=== PATIENT | male | born 1955 | race Caucasian/White ===

== ENCOUNTER 2017-06-16 13:04 | Observation (INO) | payer OTHER ==
[2017-06-16] MEDS ORDERED: ONDANSETRON 4 MG/2 ML VIAL IVP PRN (14:10)
[2017-06-16] MEDS ORDERED: ONDANSETRON DISINTEGRATING 4 MG TAB PO PRN (14:10)
[2017-06-16] MEDS ORDERED: ACETAMINOPHEN 325 MG TAB PO PRN (14:10)
[2017-06-16] MEDS ORDERED: DEXAMETHASONE 10 MG/ML VIAL IVP ONE (14:10)
[2017-06-16] MEDS ORDERED: cefTRIAXone 1 GM in D5W 50 ML IV SCH (14:30)
--- NOTE | 2017-06-16 14:41 | PDGENHP ---
History and Physical - Chief Complaint throat pain - History of Present Illness 62 yo male with h/o hypothyroidism presents to hospital for direct admission from the ENT clinic due to concern for bill-tonsillar abscess. He initially felt throat pain on the left side 2 days prior to arrival. He felt a tender, swollen left sided lymph node. This became larger, more tender and more painful , particularly in the back of his throat. He has difficulty swallowing. Denies swelling of tongue or lips. No fevers, but endorses chills. He feels fatigued. Reports poor oral intake. He has not received antibiotics or steroids prior to arrival. History Information - Allergies/Home Medication List Allergies/Adverse Reactions: No Known Allergies Allergy (Unverified 06/16/17 14:10) Home Medications: Ibuprofen [Motrin (*)] 200 mg PO DAILY PRN 06/16/17 [Last Taken Unknown] Levothyroxine [Synthroid 100 mcg (*)] 100 mcg PO DAILY06 06/16/17 [Last Taken ] I have personally reviewed and updated: family history, medical history, social history, surgical history - Past Medical History Additional medical history: hypothyroidism, shoulder arthritis - Surgical History Additional surgical history: shoulder surgeries - Family History Positive for: male first degree with history of premature CAD Additional family history: brother had MT in his early 60's - Social History Smoking Status: Never smoked Alcohol Use: Other (1-2 beers a day) Drug Use: Marijuana Additional social history: Works for [employer], [employer]. Girlfriend is present at bedside. Review of Systems ROS: 10pt was reviewed & negative except for what was stated in HPI & below Physical Exam Temp Pulse Resp BP Pulse Ox 37.2 C 64 16 128/78 H 97 06/16/17 14:06 06/16/17 14:06 06/16/17 14:06 06/16/17 14:06 06/16/17 14:06 Constitutional: no apparent distress Eyes: PERRL, anicteric sclera, EOMI Ears, Nose, Mouth, Throat: moist mucous membranes, other (+left peritonsillar hypertrophy, ?abscess, minimal uvula displacement, no angioedema. Neck supple, +left anterior LAD, +tender) Cardiovascular: regular rate and rhythym, no murmur, rub, or gallop Respiratory: no respiratory distress, clear to auscultation Gastrointestinal: normoactive bowel sounds, soft, non-tender abdomen Skin: warm Musculoskeletal: full muscle strength Neurologic: AAOx3 Psychiatric: interacting appropriately Assessment & Plan Assessment: 62 yo male with h/o hypothyroidism presents for direct admission for tonsillitis and concern for peritonsillar abscess. Tonsillitis - ?peritonsillar abscess. No significant uvula deviation. Rapid strep neg in outpt setting. Case reviewed with ENT and they will consult. -obtain CBC, BMP, CRP, blood cultures -send GAS culture -IV clindamycin and ceftriaxone per ENT recommendations -will likely obtain CT neck, awaiting renal function -speech/swallow eval Hypothyroidism - cont outpt levothyroxine Full code DVT PPLX - relatively low risk, SCD's and ambulation for now, consider Lovenox if he has a prolonged hospitalization or requires surgery Dispo - obs
[2017-06-16 15:16] LABS: % IMMATURE GRANULYOCYTES 0.2 % (0.0-1.1); ABSOLUTE IMMATURE GRANULOCYTES 0.02 10^3/uL (0.00-0.10); ADD DIFF? NO; ADD MORPH? NO; ADD SCAN? NO; ATYPICAL LYMPHOCYTE FLAG 0 (0-99); FRAGMENT RBC FLAG 0 (0-99); HEMATOCRIT 42.7 % (40.0-51.0); HEMOGLOBIN 14.8 g/dL (13.7-17.5); LEFT SHIFT FLG 0 (0-99); LIPEMIA HEMOLYSIS FLAG 90 (0-99); MEAN CELL HEMOGLOBIN 32.2 pg (27.9-34.1); MEAN CELL HEMOGLOBIN CONCENTR. 34.7 g/dL (32.4-36.7); MEAN PLATELET VOLUME 10.5 fL (8.7-11.7); PLATELET CLUMPS FLAG 10 (0-99); PLATELET COUNT 180 10^3/uL (150-400); RED BLOOD CELL COUNT 4.59 10^6/uL (4.40-6.38); RED CELL DISTRIBUTION WIDTH 12.5 % (11.5-15.2)
[2017-06-16] MEDS: HYDROmorphONE/DILAUDID 1 MG/ML SYR IVP PRN ×2 (15:23→20:00)
[2017-06-16 15:42] LABS: ANION GAP 10 mEq/L (8-16); C-REACTIVE PROTEIN 82.5 mg/L (<10.0); CALCIUM 9.4 mg/dL (8.5-10.4); CARBON DIOXIDE 23 mEq/l (22-31); CHLORIDE 102 mEq/L (97-110); GLOMERULAR FILTRATION RATE > 60; GLUCOSE 89 mg/dL (70-100); SODIUM 135 mEq/L (134-144)
[2017-06-16] MEDS ORDERED: IOPAMIDOL (ISOVUE-300) 100 ML BTL ONE (16:06)
[2017-06-16] MEDS: CLINDAMYCIN 900 MG/DEXTROSE 50 ML IV SCH ×2 (16:51→21:13)
[2017-06-16] MEDS ORDERED: NS 1,000 ML IV SCH (17:15)
[2017-06-16] MEDS: OXYCODONE/APAP 5/325 TAB PO PRN ×2 (17:48→21:14)
--- NOTE | 2017-06-16 19:58 | GCON ---
[f rep st] CONSULTATION HISTORY OF PRESENT ILLNESS: This is a 62-year-old male with hypothyroidism, who presents to the [facility] for direct admission from my clinic today, due to concern for significant unilateral tonsillit is. The patient states that he initially noted throat pain on the left side approximately 2 days ag o. He noted some left-sided swollen glands. This became larger, more tender, and more painful, erick ecially in the back of his throat. He presented to his primary care this morning and was referred t o our office over concern of possible peritonsillar abscess. The patient complains of left-sided so re throat, as well as mild voice change. He denies any trouble breathing or otalgia. Denies trismu s. The patient is otherwise healthy. PHYSICAL EXAMINATION: This is a 62-year-old male, in no acute distress. He is wincing in pain whil e swallowing. His voice is not significantly muffled. Otologic exam is normal. Nasal exam is norm al. Oropharyngeal exam shows left watery tonsillitis without uvular deviation. No peritonsillar ab scess on physical exam. Laryngoscopic exam was performed through the left side of the nose to reveal edema that traverses to the base of tongue and into the aryepiglottic fold on the left. There is mild deviation of the epi glottis. The laryngeal airway is otherwise patent. True vocal cords move well on phonation and res piration. Neck notable for tender left-sided lymphadenopathy. Stat CAT scan was ordered, which reveals a left-sided intratonsillar abscess. I spoke to the radiol ogist, and he agrees that it is intratonsillar. Myself and Dr. Baker both reviewed the CAT scan a s well. ASSESSMENT AND PLAN: This is a 62-year-old male with a unilateral left tonsillitis with radiographi debbie diagnosed left intratonsillar abscess. Upon reevaluation this afternoon following admission, the patient does note significant improvement in his symptoms. His exam is improving following edmund tion of Decadron, as well as clindamycin. Plan for admission to the hospitalist for IV clindamycin, as well as IV Decadron. The patient was given a shot of Rocephin on admission as well. 1. Clindamycin 900 mg t.i.d. 2. Decadron 12 mg b.i.d. Can taper to 10 mg tomorrow followed by 8 mg on discharge. 3. At this point, no surgical intervention is planned for draining an intratonsillar abscess. The patient should respond to IV antibiotics and steroids. 4. ENT will continue to follow the patient while in-house and re-scope on a daily basis until disch arge. Thank you so much for allowing us to participate in the care of this patient. If you have any furth er questions, please do not hesitate to contact our office. Dr. Baker has seen and evaluated the patient. He agrees with the above. /[id number]/MODL
[2017-06-17] MEDS: OXYCODONE/APAP 5/325 TAB PO PRN (04:36)
[2017-06-17] MEDS: CLINDAMYCIN 900 MG/DEXTROSE 50 ML IV SCH ×2 (04:36→14:30)
[2017-06-17 04:51] LABS: % IMMATURE GRANULYOCYTES 0.3 % (0.0-1.1); ABSOLUTE IMMATURE GRANULOCYTES 0.03 10^3/uL (0.00-0.10); ADD DIFF? NO; ADD MORPH? NO; ADD SCAN? NO; ATYPICAL LYMPHOCYTE FLAG 0 (0-99); FRAGMENT RBC FLAG 0 (0-99); LEFT SHIFT FLG 0 (0-99); LIPEMIA HEMOLYSIS FLAG 90 (0-99); MEAN CELL HEMOGLOBIN 32.1 pg (27.9-34.1); MEAN CELL HEMOGLOBIN CONCENTR. 34.1 g/dL (32.4-36.7); MEAN PLATELET VOLUME 10.2 fL (8.7-11.7); PLATELET CLUMPS FLAG 0 (0-99); PLATELET COUNT 195 10^3/uL (150-400); RED BLOOD CELL COUNT 4.68 10^6/uL (4.40-6.38); RED CELL DISTRIBUTION WIDTH 12.4 % (11.5-15.2)
[2017-06-17] MEDS ORDERED: LEVOTHYROXINE 100 MCG TAB PO SCH (06:00)
[2017-06-17] MEDS ORDERED: DEXAMETHASONE 2 MG TAB PO SCH (09:00)
--- NOTE | 2017-06-17 09:12 | SOAPPROG ---
SOAP Progress Note Assessment/Plan: Assessment:62 year old male with left tonsillar abscess. He is doing much better today. Airway improving on laryngoscopy. - Continue clindamycin/decadron - At this point there are no plans for surgical intervention, per ENT - Will re-evaluate this afternoon and recommend either discharge tonight vs tomorrow AM 06/17/17 09:09 Subjective: 62 year old male left tonsillar abscess. Doing much better this AM. Was able to sleep. Had some vomiting this AM. Objective: Vital Signs Temp Pulse Resp BP Pulse Ox 36.8 C 54 L 18 120/73 95 06/17/17 07:20 06/17/17 07:20 06/17/17 07:20 06/17/17 07:20 06/17/17 07:20 Laboratory Results 06/17/17 04:36 06/16/17 15:00 06/16/17 06/17/17 06/18/17 05:59 05:59 05:59 Intake Total 650 Balance 650 Voice improved, no stridor Oropharynx with significant improvement in edema Laryngeal airway improved -- still with edema from left BOT to left AE fold, but improved ICD10 Worksheet Patient Problems: Problems Problem Status Onset Tonsillar abscess Acute Tonsillitis Acute - ICD10 Problem Qualifiers (1) Tonsillitis (2) Tonsillar abscess
[2017-06-17] MEDS ORDERED: LIDOCAINE 2% VISCOUS 15 ML UDCUP PO PRN (10:39)
[2017-06-17 10:45] VITALS: PULSE 60; RESP 20; O2SAT 96
[2017-06-17 15:16] VITALS: BP 160/85; TEMP 98.4
--- NOTE | 2017-06-17 17:31 | SOAPPROG ---
SOAP Progress Note Assessment/Plan: pt with left METAL TRIMMER and BOT swelling. he is feeling much better. O- scope- fullness left tonsil but otherwise patent airway, minimal swelling of larynx and BOT. Plan: Pt with improving left METAL TRIMMER. he will be discharged home o Clinda qid x 10 days and Decadron 8 mg x 2d, 4mg x2 days. He understands if sx return to call immediately. 06/17/17 17:29 Objective: Vital Signs Temp Pulse Resp BP Pulse Ox 36.9 C 60 20 160/85 H 96 06/17/17 15:15 06/17/17 15:15 06/17/17 15:15 06/17/17 15:15 06/17/17 15:15 Laboratory Results 06/17/17 04:36 06/16/17 15:00 06/16/17 06/17/17 06/18/17 05:59 05:59 05:59 Intake Total 650 Balance 650 ICD10 Worksheet Patient Problems: Problems Problem Status Onset Tonsillar abscess Acute Tonsillitis Acute
--- NOTE | 2017-06-17 17:42 | PDDCSUM ---
Discharge Summary Discharge Summary: DISCHARGE SUMMARY FOLLOW-UP ITEMS: Re-evaluate tonsillar abscess, blood cultures and group a strep pending DATE OF ADMISSION: 06/16/17 DATE OF DISCHARGE: 06/17/2017 DISCHARGE DIAGNOSES: 1. Intra tonsillar abscess, left 2. Acute posterior pharynx pain CONSULTATIONS: ENT PROCEDURES / IMAGING: Bedside scope of throat CHIEF COMPLAINT: Acute throat pain SUBJECTIVE: Patient is feeling better at time of discharge, only experiencing pain with swallowing PHYSICAL EXAM ON DISCHARGE: Systolic blood pressure is 120, heart rate 60, afebrile overnight, satting well on room air, visible enlarged left tonsil with some draining exudate, tender left submandibular lymph node, approximately 2 cm, minimal tenderness in the submandibular space and no tenderness over the left mandible LABS ON DISCHARGE: White blood count 9900, hemoglobin 15 HOSPITAL COURSE BY PROBLEM: 1. Intra tonsillar abscess. Acute, left-sided, evaluated by ear nose and throat , recommended IV high-dose clindamycin as well as IV steroids. The affected area improved clinically, rendering the patient less pain with swallowing, very minimal pain at rest. He has been prescribed as needed lidocaine to be taken prior to eating and drinking, as well as ongoing clindamycin and Decadron. He will utilize the clindamycin for 10 subsequent days, and use a steroid taper. He will follow up in the ENT Clinic. At time of discharge, the patient's demonstrating no upper airway or throat compromise. DISCHARGE MEDICATIONS: Please see official discharge medication reconciliation sheet in chart , dexamethasone 10 mg tonight, taper by 4 mg increments thereafter. Clindamycin 900 mg 3 times daily times 10 days. DISCHARGE INSTRUCTIONS: Patient will follow up with Dr. Baker.
== END 2017-06-17 18:35 | disposition home or self-care (01) ==
LOC: F3E 13:12
PROVIDERS: ADMIT Internal Medicine; ATTEND Internal Medicine
DX: J36 Peritonsillar abscess (principal); E03.9 Hypothyroidism, unspecified; M19.019 Primary osteoarthritis, unspecified shoulder; Z82.49 Family history of ischemic heart disease and other diseases of the circulatory system
CPT/HCPCS: 70491; 92526; 92610; G0378; J0696; J1100; J1170; Q9967